=== PATIENT | male | born 1945 | race Caucasian/White ===

== ENCOUNTER 2020-06-23 14:40 | Emergency (ER) | payer MEDICARE, OTHER, SELFPAY ==
[2020-06-23 14:41] VITALS: BP 145/73; PULSE 109; RESP 16; TEMP 36.6; O2SAT 98; BMI 27.6
--- NOTE | 2020-06-23 15:19 | XR_ITS ---
PROCEDURE: XR HAND LT 2V CLINICAL INDICATION: laceration Injury with pain COMPARISON: No exams were available for comparison FINDINGS: There is a comminuted fracture involves the distal aspect of the proximal phalanx of the thumb. Fracture has both a transverse component which is nondisplaced and longitudinal component which extends into the articular surface of the interphalangeal joint also nondisplaced. Nonspecific calcification present both along the anterior and posterior aspect of the wrist consistent with chondrocalcinosis. Minimal periarticular calcification noted at the 1st metacarpophalangeal joint Other findings:None. IMPRESSION: Nondisplaced comminuted fracture distal aspect proximal phalanx of the thumb with intra-articular involvement Dictated by: Jesús Reyna MD 06/23/2020 16:41 Jesús Reyna MD in [place] 06/23/2020 16:41
--- NOTE | 2020-06-23 15:33 | HMH.EDWNDL ---
ED Disposition Clinical Impression: Open fracture of left thumb Qualifiers: Encounter type: initial encounter Phalanx: distal Fracture alignment: nondisplaced Qualified Code(s): S62.525B - Nondisplaced fracture of distal phalanx of left thumb, initial encounter for open fracture Disposition: Home, Self-Care Condition on Discharge: Good Instructions: DI for Laceration Repair Prescriptions: Hydrocod/Acet 5/325 mg [Tiro 5/325mg tablet] 1 tab PO Q6HP PRN #10 tab PRN Reason: Moderate Pain Prescription Printed Amoxicillin/Potassium Clav [Augmentin 875-125 Tablet] 1 tab PO Q12H 10 Days #20 tab Prescription Printed Referrals: PCP,No [Primary Care Provider] - Polo Dupree MD [Referring] - 3 days (Report to clinic on 06/27/2020 at 0800) - Critical Care Critical Care Time: No Attestation: On 06/23/20, the high probability of a clinically significant, sudden or life threatening deterioration of the following system(s) required my full and direct attention, intervention and personal management. The time I documented below is in addition to time spent performing reported procedures but includes the following listed in this critical care notation. Medical Decision Making - Medical Records Medical records reviewed: Yes: I reviewed the patient's medical records. - Sg Inquiry Pt receiving controlled substance: No Vital Signs: 06/23/20 14:41 Temperature 98 F Temperature Source Oral Pulse Rate [Left Radial] 109 H Respiratory Rate 16 Blood Pressure [Right Arm] 145/73 H Blood Pressure Mean [Right Arm] 97 Blood Pressure Position [Right Arm] Sitting 02 Sat by Pulse Oximetry 98 Oxygen Delivery Method Room Air Orders (Tests/Meds): ED MEDICATIONS Generic Name Dose Route Start Last Admin Trade Name Freq PRN Reason Stop Dose Admin Cefazolin Sodium 1 gm 06/23/20 17:30 Cefazolin 1gm Vial IM 06/23/20 17:31 ONCE ONE Protocol Discontinued Medications Generic Name Dose Route Start Last Admin Trade Name Freq PRN Reason Stop Dose Admin Acetaminophen 1,000 mg 06/23/20 15:20 06/23/20 16:29 Acetaminophen 500mg Tab PO 06/23/20 15:21 1,000 mg ONCE ONE Administration - Radiology Data #1 Image(s): Hand Image Reviewed: Yes I reviewed the patient's radiology results, Yes I reviewed the patient's radiology image Nondisplaced comminuted fracture distal aspect proximal phalanx of the thumb with intra-articular involvement - Reevaluation(s) Time: 17:31 Reevaluation #1: Patient does have evidence of fracture with intra-articular involvement. This is an open fracture. I did speak to orthopedic surgery and hand surgery in [place]. Mora. He has arranged for emergency follow-up. Patient was thoroughly irrigated. Cleaned and sutured. Patient be placed in thumb spica. Tolerated procedure well. I did instruct the patient that he needs to maintain his emergent follow-up or he is to return the emergency department for evaluation. Given strict return precautions. Verbalized understanding. Medical Decision Narrative: 75-year-old male presenting with laceration to the left thumb. Good range of motion. X-ray obtained. Patient will require suture repair. Wound/Laceration HPI - General Chief Complaint: Wound/Laceration Stated Complaint: Cut on right thumb Time Seen by Provider: 06/23/20 15:34 Mode of Arrival: Ambulatory Limitations: No Limitations Description of Symptoms (Recalled from ER Triage Doc. 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 - History of Present Illness HPI narrative: This is a 75-year-old male presenting to the emergency department with an injury to his left thumb. The patient was sliding in his crossbow when he accidentally released it. One of the edges of the arrow caught the back of his thumb. He has a laceration of the dorsal aspect of his left thumb. He did apply direct pressure dressing whic
[2020-06-23 18:03] VITALS: BP 142/74; PULSE 89; RESP 16; TEMP 36.6; O2SAT 98
== END 2020-06-23 18:04 | disposition home or self-care (01) ==
PROVIDERS: Emergency Provider Emergency Medicine
DX: S62.525B Nondisplaced fracture of distal phalanx of left thumb, initial encounter for open fracture (principal); S61.012A Laceration without foreign body of left thumb without damage to nail, initial encounter; W45.8XXA Other foreign body or object entering through skin, initial encounter; Y92.018 Other place in single-family (private) house as the place of occurrence of the external cause
CPT/HCPCS: 12002; 29125; 73120; 96372; 99283

== ENCOUNTER 2025-05-23 00:06 | Emergency (ER) | payer MEDICARE, OTHER, SELFPAY ==
[2025-05-23 00:20] VITALS: BP 134/85; PULSE 92; RESP 16; TEMP 36.6; O2SAT 95; BMI 26.3
--- OUTSIDE RECORDS SUMMARY | 2025-05-23 00:20 | XMS_ITS | Clinical Summary ---
Author Organization [facility] Care Address [address] [place] [id number] Care Team Providers Care Environmental Remediation Engineer Name Role Phone Pcp, None Per Patient Primary Care Provider Unav ailable Source Comments In the event that these patient records contain information protected by 42 CFRpart 2 (i.e., would identify the patient as a substance abuser and was obtainedby a federally assisted substance abuse program to diagnose, refer fortreatment or treat the patient for substance abuse), please be advised of thefollowing: This information has been disclosed to you from records protected by Federalconfidentiality rules (42 CFR part 2). The Federal rules prohibit you frommaking any further disclosure of this information unless further disclosure isexpressly permitted by the written consent of the person to whom it pertains oras otherwise permitted by 42 CFR part 2. A general authorization for therelea se of medical or other information is NOT sufficient for this purpose.The Federal rules restrict any use of the information to criminally investigateor prosecute any alcohol or drug abuse patient. expressly permitted by the written consent of the person to whom it pertains or as otherwise permitted by 42 CFR part 2. A general authorization for the release of medical or other information is NOT sufficient for this purpose. The Federal rules restrict any use of the information to criminally investigate or prosecute any alcohol or drug abuse patient.[facility] Allergies No known active allergies Medications metFORMIN (GLUCOPHAGE) 500 MG tablet 04/18/2012 Active pravastatin (PRAVACHOL) 40 MG tablet 04/18/2012 Active aspirin 81 MG chewable tablet 04/18/2012 Act antonio azithromycin (ZITHROMAX Z-SUSIE) 250 MG tablet Take 2 pills the first day then 1 pill daily for a total of 5 days 6 tablet 0 09/23/2016 Active Active Problems No known active problems Social History Tobacco Use Types Packs/Day Years Used Date Smoking Tobacco: Some Days Sex and Gender Information Value Date Recorded Sex Assigned at Not on file Legal Sex Male 2:19 AM EST Gender Identity Not on file Sexual Orientation Not on file Last Filed Vital Signs Vital Sign Reading Time Taken Comments Blood Pressure 135/85 09/23/2016 12:00 PM EST Pulse 72 09/23/2016 12:00 PM EST Temperature 36.8 C (98.2 F) 09/23/2016 12:00 PM EST Respiratory Rate 16 09/23/2016 12:00 PM EST Oxygen Saturation 95% 09/23/2016 12:00 PM EST Inhaled Oxygen Concentration - - Weight 83.6 kg (184 lb 3.2 oz) 09/23/2016 12:00 PM EST Height 165.1 cm (5' 5 ) 09/23/2016 12:00 PM EST Body Mass Index 30.65 09/23/2016 12:00 PM EST Plan of Treatment Health Maintenance Due Date Last Done Comments Hepatitis C Screen 1963 COVID-19 Vaccine ( season) 2025 Influenza Vaccine (#1) 2025 Insurance MEDICARE PART A AND PART B [facility] Care Teams Environmental Remediation Engineer Relationship Specialty Start Date End Date Pcp, None Per Patient [address] [place] [address] PCP - General 09/23/16
--- OUTSIDE RECORDS SUMMARY | 2025-05-23 00:20 | XMS_ITS | Encounter Summary ---
Author Organization [facility] Address [address] [place] [address] Care Team Providers Care Steel Pickler Name Role Phone Dk GRIMES MD, Alexis Duncan Primary Care Provider [phone] Syd Puga Primary Care Provider + [phone] Encounter Details Date Type Department Care Team (Late st Contact Info) Description 03/30/2019 OnBase Documentation On File [address] [place] [id number] Social History Tobacco Use Types Packs/Day Years Used Date Smoking Tobacco: Never Assessed Sex and Gender Information Value Date Recorded Sex Assigned at Not on file Legal Sex Male 11:24 AM EST Gender Identity Not on file Sexual Orientation Not on file documented as of this encounter Plan of Treatment Not on file documented as of this encounter Visit Diagnoses Not on filedocumented in this encounter Additional Health Concerns Infection Onset Date Last Indicated Resolved Time Suspected COVID-19 03/24/2021 03/24/2021 12:41 AM EDT documented as of this encounter Care Teams Steel Pickler Relationship Specialty Start Date End Date Alexis Root III, MD [address] [facility] [place], [place] [id number] PCP - General Family Medicine 03/31/19 03/01/24 Syd Puga [address] [place] [address] PCP - General 03/02/24 documented as of this encounter
--- OUTSIDE RECORDS SUMMARY | 2025-05-23 00:20 | XMS_ITS | Encounter Summary ---
Author Organization [facility] Address [address] [place] [address] Care Team Providers Care Custom Wood Stair Builder Name Role Phone Dk GRIMES MD, Alexis Duncan Primary Care Provider [phone] Syd Puga Primary Care Provider + [phone] Encounter Details Date Type Department Care Team (Late st Contact Info) Description 06/06/2020 OnBase Documentation On File [address] [place] [address] Social History Tobacco Use Types Packs/Day Years Used Date Smoking Tobacco: Some Days Cigars Smokeless Tobacco: Never Alcohol Use Standard Drinks/Week Comments Yes 1 (1 standard drink = 0.6 oz pur e alcohol) Few beers per week Sex and Gender Information Value Date Recorded [...] documented as of this encounter Care Teams Custom Wood Stair Builder Relationship Specialty Start Date End Date Alexis Root III, MD [address] [facility] [place] [address] PCP - General Family Medicine 03/31/19 03/01/24 Syd Puga [address] [place] [address] PCP - General 03/02/24 documented as of this encounter
--- OUTSIDE RECORDS SUMMARY | 2025-05-23 00:20 | XMS_ITS | Clinical Summary ---
Author Organization [facility] Address [address] [place] [address] Care Team Providers Care Water Meter Mechanic Name Role Phone Unavailable Primary Care Provider Unavailabl e Allergies No known active allergies Medications metformin (GLUCOPHAGE) 500 MG tablet Take 500 mg by mouth daily. Active pravastatin (PRAVACHOL) 10 MG tablet Take by mouth daily. Active aspirin 81 MG tablet Take 81 mg by mouth daily. Active naproxen (NAPROSYN) 500 MG tablet Take 1 tablet (500 mg total) by mouth 2 (two) times a day with meals. 20 tablet 06/20/2016 Active Active Problems No known active problems Social History Tobacco Use Types Packs/Day Years Used Date Smoking Tobacco: Former Alcohol Use Standard Drinks/Week Comments Yes 0 (1 standard drink = 0.6 oz pur e alcohol) Sex and Gender Information Value Date Recorded Sex Assigned at Not on file Legal Sex Male 11:12 AM EDT Gender Identity Not on file Sexual Orientation Not on file Last Filed Vital Signs Vital Sign Reading Time Taken Comments Blood Pressure 129/81 06/20/2016 12:45 PM EDT Pulse 69 06/20/2016 12:45 PM EDT Temperature 36.9 C (98.5 F) 06/20/2016 11:24 AM EDT Respiratory Rate 18 06/20/2016 12:45 PM EDT Oxygen Saturation 98% 06/20/2016 12:45 PM EDT Inhaled Oxygen Concentration - - Weight 78.5 kg (173 lb) 06/20/2016 11:24 AM EDT Height 172.7 cm (5' 8 ) 06/20/2016 11:24 AM EDT Body Mass Index 26.3 06/20/2016 11:24 AM EDT Plan of Treatment Health Maintenance Due Date Last Done Comments Hepatitis C antibody 1945 PSA 1945 Zoster vaccines (1 of 2) 1997 Pneumococcal vaccines 50+ yr s (2 of 2 - PCV) 01/23/2014 01/23/2013 RSV vaccines ( or >/ = 60 yo) (1 - 1-dose 75+ series) 2022 DTaP/Tdap/Td vaccines (2 - T d or Tdap) 01/18/2025 01/18/2015 Influenza vaccines (#1) 2025 HPV vaccines Aged Out No longer eligi ble based on patient's age to complete this topic Hepatitis A vaccines Aged Out No long er eligible based on patient's age to complete this topic Hepatitis B vaccines Aged Out No long er eligible based on patient's age to complete this topic Hib vaccines Aged Out No longer eligi ble based on patient's age to complete this topic Meningococcal ACWY vaccines Aged Out No longer eligible based on patient's age to complete this topic Polio vaccines Aged Out No longer niharika gible based on patient's age to complete this topic [facility] A AND B
--- OUTSIDE RECORDS SUMMARY | 2025-05-23 00:20 | XMS_ITS | Encounter Summary ---
Author Organization [facility] Address [address] [place] [address] Care Team Providers Care Cake Wrapper Name Role Phone Dk GRIMES MD, Alexis Duncan Primary Care Provider [phone] Syd Puga Primary Care Provider + [phone] Encounter Details Date Type Department Care Team (Late st Contact Info) Description 11/15/2021 OnBase Documentation On File [address] [place] [address] Social History Tobacco Use Types [...] on file Sexual Orientation Not on file COVID-19 Exposure Response Date Recorded In the last 10 days, have yo u been in contact with someone who was confirmed or suspected to have Coronavirus/COVID-19? No / Unsure 11/15/2021 11:45 AM EDT documented as of this encounter Plan of Treatment Not on file documented as of this encounter Visit Diagnoses Not on filedocumented in this encounter Care Teams Cake Wrapper Relationship Specialty Start Date End Date Alexis Root III, MD [address] [facility] [place] [address] PCP - General Family Medicine 03/31/19 03/01/24 Syd Puga [address] [place] [address] PCP - General 03/02/24 documented as of this encounter
--- OUTSIDE RECORDS SUMMARY | 2025-05-23 00:20 | XMS_ITS | Encounter Summary ---
Author Organization [facility] Address [address] [place] [address] Care Team Providers Care Campaign Associate Name Role Phone Mirza Vinson MD Primary Care Provider + Carlin Tavera Primary Care Provider Melissa Root III, MD, Alexis W Primary Care Provider +[phone] Syd Puga Primary Care Provider + [phone] Encounter Details Date Type Department Care Team (Late st Contact Info) Description 09/28/2010 Historical Unknown Encounter On File [address] [place] [address] Provider, [place] [address] Social History Tobacco Use Types Packs/Day Years [...] documented as of this encounter Care Teams Campaign Associate Relationship Specialty Start Date End Date Mirza Vinson MD [address] [place] [address] PCP - General 01/17/12 02/06/16 Surescripts, Testone PCP - General 02/07/16 02/08/16 Alexis Root III, MD [address] [facility] [place] [address] PCP - General Family Medicine 03/31/19 03/01/24 Syd Puga [address] [place] [address] PCP - General 03/02/24 documented as of this encounter
--- OUTSIDE RECORDS SUMMARY | 2025-05-23 00:20 | XMS_ITS | Encounter Summary ---
Author Organization [facility] Address [address] [place] [address] Care Team Providers Care Quality Control Microbiology Supervisor Name Role Phone Mirza Vinson MD Primary Care Provider + Carlin Tavera Primary Care Provider Melissa Root III, MD, Alexis W Primary Care Provider +[phone] Syd Puga Primary Care Provider + [phone] Encounter Details Date Type Department Care Team (Late st Contact Info) Description 10/10/2010 Historical Unknown Encounter On File [address] [place] [address] Provider, [place] [address] Social History Tobacco Use Types Packs/Day Years [...] documented as of this encounter Care Teams Quality Control Microbiology Supervisor Relationship Specialty Start Date End Date Mirza Vinson MD [address] [place] [address] PCP - General 01/17/12 02/06/16 Surescripts, Testone PCP - General 02/07/16 02/08/16 Alexis Root III, MD [address] [facility] [place] [address] PCP - General Family Medicine 03/31/19 03/01/24 Syd Puga [address] [place] [address] PCP - General 03/02/24 documented as of this encounter
--- OUTSIDE RECORDS SUMMARY | 2025-05-23 00:20 | XMS_ITS | Encounter Summary ---
Author Organization [facility] Address [address] [place] [address] Care Team Providers Care Coin Machine Assembler Name Role Phone Mirza Vinson MD Primary Care Provider + SurescriCarlin reynolds Primary Care Provider Melissa Root III, MD, Alexis W Primary Care Provider +[phone] Syd Puga Primary Care Provider + [phone] Encounter Details Date Type Department Care Team (Late st Contact Info) Description 09/28/2010 OnBase Documentation On File [address] [place] [address] Social History Tobacco Use Types Packs/Day Years Used Date Smoking Tobacco: Never Assessed Sex and Gender Information Value Date Recorded Sex Assigned at Not on file Legal Sex Male 11:24 AM EST Gender Identity Not on file Sexual Orientation Not on file documented as of this encounter Miscellaneous Notes * Questionnaire - PROVIDER, ON-FILE - 09/28/2010 12:00 AM EST documented in this encounter Plan of Treatment Not on file documented as of this encounter Visit Diagnoses Not on filedocumented in this encounter Additional Health Concerns Infection Onset Date Last Indicated Resolved Time Suspected COVID-19 03/24/2021 03/24/2021 12:41 AM EDT documented as of this encounter Care Teams Coin Machine Assembler Relationship Specialty Start Date End Date Mirza Vinson MD [address] [place] [address] PCP - General 01/17/12 02/06/16 Carlin Tavera PCP - General 02/07/16 02/08/16 Alexis Root III, MD [address] [facility] [place] [address] PCP - General Family Medicine 03/31/19 03/01/24 Syd Puga [address] [place] [address] PCP - General 03/02/24 documented as of this encounter
--- OUTSIDE RECORDS SUMMARY | 2025-05-23 00:20 | XMS_ITS | Encounter Summary ---
Author Organization [facility] Address [address] [place] [address] Care Team Providers Care Sourcing Specialist Name Role Phone Mirza Vinson MD Primary Care Provider + SurescriCarlin reynolds Primary Care Provider Melissa Root III, MD, Alexis W Primary Care Provider +[phone] Syd Puga Primary Care Provider + [phone] Encounter Details Date Type Department Care Team (Late st Contact Info) Description 10/10/2010 OnBase Documentation On File [address] [place] [address] Social History Tobacco Use Types Packs/Day Years Used Date Smoking Tobacco: Never Assessed Sex and Gender Information Value Date Recorded Sex Assigned at Not on file Legal Sex Male 11:24 AM EST Gender Identity Not on file Sexual Orientation Not on file documented as of this encounter Miscellaneous Notes * Condition of Admission - PROVIDER, ON-FILE - 10/10/2010 12:00 AM EST documented in this encounter Plan of Treatment Not on file documented as of this encounter Visit Diagnoses Not on filedocumented in this encounter Additional Health Concerns Infection Onset Date Last Indicated Resolved Time Suspected COVID-19 03/24/2021 03/24/2021 12:41 AM EDT documented as of this encounter Care Teams Sourcing Specialist Relationship Specialty Start Date End Date Mirza Vinson MD [address] [place] [address] PCP - General 01/17/12 02/06/16 Mayterigail, Testone PCP - General 02/07/16 02/08/16 Alexis Root III, MD [address] [facility] [place] [address] PCP - General Family Medicine 03/31/19 03/01/24 Syd Puga [address] [place], [place] [id number] PCP - General 03/02/24 documented as of this encounter
--- OUTSIDE RECORDS SUMMARY | 2025-05-23 00:20 | XMS_ITS | Clinical Summary ---
Author Organization [facility] Address [address] [place] [address] Care Team Providers Care Featheredge Machine Operator Name Role Phone Syd Puga Primary Care Provider + [phone] Allergies No known active allergies Medications aspirin 81 mg tablet Take 81 mg by mouth once daily 1 Active *folic acid/niacinamid e/zinc oral takes 2- 500mg pills daily 1 Active aspirin-calcium carbonate 81 mg-300 mg calcium(777 mg) Tab Take by mouth Active pravastatin (PRAVACHOL) 10 MG tablet Take 10 mg by mouth at bedtime 7 Active metFORMIN (GLUCOPHAGE) 500 MG tablet Take 500 mg by mouth daily with breakfast 2 Active ibuprofen (MOTRIN) 200 MG tablet Take 400 mg by mouth every 6 (six) hours as needed for Pain Active naproxen (NAPROSYN) 500 MG tablet Take 500 mg by mouth once as needed Active Active Problems Problem Noted Date Diagnosed Date Cigar smoker 04/01/2023 Asbestosis (CMS/HHS-HCC) 04/01/2023 Overview (04/01/2023): Oct 24, 2022 Entered By: SYD ANSARI Comment: Pt in survail program through former employer, screened every year Dyslipidemia 04/01/2023 ED (erectile dysfunction) 04/01/2023 Hyperlipidemia 04/01/2023 Primary osteoarthritis of left knee 10/25/2021 Asbestos exposure 05/31/2014 Diabetes mellitus, type 2 (CMS/HHS-HCC) 11/13/20 13 Immunizations Immunization Administration Dates Next Due COVID-19 Pfizer Monovalent Vaccine 06/18/2021,,10/01/2020 Family History Medical History Relation Comments Colon cancer Neg Hx Colon polyps Neg Hx Social History Tobacco Use Types Packs/Day Years Used Date Smoking Tobacco: Some Days Cigars Passive Smoke Exposure: Past Smokeless Tobacco: Never Tobacco Cessation:Ready to Q uit: Not Asked; Counseling Given: Not Answered Alcohol Use Standard Drinks/Week Comments Yes 3 (1 standard drink = 0.6 oz pur e alcohol) Few beers per week Interpersonal Safety Answer Date Record ed Is Anyone Hurting/Threatenin g You or Making You Feel Afraid? Not asked, patient not alone 03/02/2024 Is Anyone Hurting/Threatenin g You or Making You Feel Afraid? Not asked, patient not alone 03/02/2024 Sex and Gender Information Value Date Recorded Sex Assigned at Not on file Legal Sex Male 11:24 AM EST Gender Identity Not on file Sexual Orientation Not on file Last Filed Vital Signs Vital Sign Reading Time Taken Comments Blood Pressure 126/71 03/02/2024 10:15 AM EDT Pulse 76 02/09/2024 10:14 AM EDT Temperature 36.8 C (98.2 F) 03/02/2024 10:00 AM EDT Respiratory Rate 18 03/02/2024 10:15 AM EDT Oxygen Saturation 96% 03/02/2024 10:15 AM EDT Inhaled Oxygen Concentration - - Weight 79.2 kg (174 lb 9.7 oz) 03/02/2024 7:12 A M EDT Height 172.7 cm (5' 8 ) 03/02/2024 7:12 AM EDT Body Mass Index 26.55 03/02/2024 7:12 AM EDT Plan of Treatment Health Maintenance Due Date Last Done Comments CT Colonography 1947 Diabetes Education 1947 Fecal Occult Blood Testing 1947 Lipid Panel 1947 Sigmoidoscopy 1947 Cologuard 1947 Medicare Initial AWV G0438 1947 Annual Urine Albumin Creatinine Ratio 1957 Monofilament Foot Exam 1957 Depression Screening 1958 Adult Tetanus (Td And Tdap) 1965 Pneumococcal Vaccine: 50+ (1 of 2 - PCV) 1966 Shingrix (1 of 2) 1997 Hemoglobin A1C 03/28/2011 09/28/2010 Diabetes Eye Assessment Exam 04/11/2021 04/11/2020 RSV Immunization or 60+ (1 - 1-dose 75+ series) 2022 Influenza Vaccine (#1) 2025 , 05/19/2023, 05/02/2021, Additional history exists Colonoscopy 03/02/2027 03/02/2024, 10/2023, 07/26/2020, Additional history exists Colorectal Cancer Screening 03/02/2027 HPV Vaccines Aged Out No longer eligi ble based on patient's age to complete this topic Hepatitis A Vaccines Aged Out No long er eligible based on patient's age to complete this topic Hib Vaccines Aged Out No longer eligi ble based on patient's age to complete this topic Meningococcal ACWY Vaccine Aged Out N o longer eligible based on patient's age to complete this topic Meningococcal B Vaccine Aged Out No l onger eligible based on patient's age to complete this topic Procedures Procedure Name Priority Date/Time Associated Diagnosis Comments COLONOSCOPY 03/02/2024 9:15 AM EDT HEMOGLOBIN A1C Routine 09/28/2010 3:14 PM EST from Last 3 Months or Most Recently Relevant to Health Maintenance Results * Colonoscopy (03/02/2024 9:15 AM EDT) Alexis Root III, MD GI PROCEDURE ORDERABLES F inal Result * Hemoglobin A1C (09/28/2010 3:14 PM EST) Hemoglobin A1C 5.8 4.3 - 6.0 % [facility] Average Blood Glucose (Calc) 118 mg/dL [facility] Comment: INTERPRETIVE DATA AVERAGE BLOOD GLUCOSE ASSOCIATED WITH THIS PERCENT GLYCATED HEMOGLOBIN (BASED ON DCCT) 09/28/2010 3:14 PM EST us Mirza Vinson MD LAB BLOOD ORDERABLES Fin al Result [facility] [id number] [place] [address] from Last 3 Months or Most Recently Relevant to Health Maintenance Care Teams Featheredge Machine Operator Relationship Specialty Start Date End Date Syd Puga 1952 [place] [address] PCP - General 03/02/24
--- OUTSIDE RECORDS SUMMARY | 2025-05-23 00:21 | XMS_ITS | Encounter Summary ---
Author Organization [facility] Address [address] [place] [address] Care Team Providers Care Drying Oven Tender Name Role Phone Mirza Vinson MD Primary Care Provider + Surescrigail Testone Primary Care Provider Melissa Root III, MD, Alexis W Primary Care Provider [phone] Syd Puga Primary Care Provider + [phone] Encounter Details Date Type Department Care Team (Late st Contact Info) Description 02/20/2013 Documentation On File [address] [place] [address] Social History Tobacco Use Types Packs/Day Years Used Date Smoking Tobacco: Never Assessed Sex and Gender Information Value Date Recorded Sex Assigned at Not on file Legal Sex Male 11:24 AM EST Gender Identity Not on file Sexual Orientation Not on file documented as of this encounter Miscellaneous Notes * Miscellaneous - PROVIDER, ON-FILE - 02/20/2013 12:00 AM EDT Patient: [facility]: [id number] Ry Disease Management Observations 07/02/2010 Influenza vaccine Done entered 09/28/2010 by FRANSISCO CARLIN 09/28/2010 Tobacco Smoking Status Current smoker. entered 09/28/2010 by FRANSISCO CARLIN documented in this encounter Plan of Treatment Not on file documented as of this encounter Visit Diagnoses Not on filedocumented in this encounter Additional Health Concerns Infection Onset Date Last Indicated Resolved Time Suspected COVID-19 03/24/2021 03/24/2021 12:41 AM EDT documented as of this encounter Care Teams Drying Oven Tender Relationship Specialty Start Date End Date Mirza Vinson MD [address] [place] [address] PCP - General 01/17/12 02/06/16 Surescrigail, Testone PCP - General 02/07/16 02/08/16 Alexis Root III, MD [address] [facility] [place], [place] [id number] PCP - General Family Medicine 03/31/19 03/01/24 Syd Puga [address] [place] [address] PCP - General 03/02/24 documented as of this encounter
--- OUTSIDE RECORDS SUMMARY | 2025-05-23 00:21 | XMS_ITS | Encounter Summary ---
Author Organization [facility] Address [address] [place] [address] Care Team Providers Care Supervisor Laundry Name Role Phone Dk GRIMES MD, Alexis Duncan Primary Care Provider [phone] Syd Puga Primary Care Provider + [phone] Encounter Details Date Type Department Care Team (Late st Contact Info) Description 03/12/2019 OnBase Documentation On File [address] [place] [id number] Social History Tobacco Use Types Packs/Day Years [...] documented as of this encounter Care Teams Supervisor Laundry Relationship Specialty Start Date End Date Alexis Root III, MD [address] [facility] [place], [place] [id number] PCP - General Family Medicine 03/31/19 03/01/24 Syd Puga [address] [place] [address] PCP - General 03/02/24 documented as of this encounter
[2025-05-23 01:01] VITALS: BP 125/73; PULSE 86; O2SAT 96
[2025-05-23 01:34] VITALS: BP 125/73; PULSE 80; RESP 16; TEMP 36.6; O2SAT 98
--- NOTE | 2025-05-23 02:51 | HMH.EDGENADL ---
Discharge Plan Disposition Patient Disposition: Home, Self-Care Condition: Good Prescriptions Prescriptions: No Action hydrocodone-acetaminophen 1 TAB tablet 1 tab PO Q6HP PRN (Reason: Moderate Pain) Qty: 10 0RF amoxicillin-pot clavulanate 1 EACH tablet 1 tab PO Q12H 10 Days Qty: 20 0RF Referrals Follow up/Referrals: Provider,Referral, [Primary Care Provider, Medical] - See instructions Activity Restrictions/Add. Instructions Additional Instructions/Restrictions: You were evaluated in the ER and are believed to be appropriate for discharge at this time. As discussed, take an antihistamine like Claritin or Zyrtec if needed for itching. You can also use a topical anti-itch cream, but I do recommend Preparation H specifically. Apply 2-3 times a day to the itchy areas. Make sure you wash all of your close and sheets to ensure no spread of the oil which could cause more rash. Follow-up with your primary care doctor for reevaluation in 2 to 3 days. Return to the ER with any new, worsening, or otherwise concerning symptoms as discussed. Clinical Impressions Clinical Impression: Dermatitis due to plants, including poison princess, sumac, and oak Instructions Patient Instructions: DI for Skin Abscess Print Language Print Language: Georgian Discharge ED Provider: Reg Acuna General Adult HPI General Chief complaint: Skin/Abscess/Foreign Body Stated complaint: skin rash Time Seen by Provider: 05/23/25 01:20 Mode of Arrival: Ambulatory Source of Information: Patient Description of Symptoms (Recalled from ER Triage Doc. by RN): Patient has an itchy rash for 1 day- on legs and arms; has not taken any medications for it History of Present Illness HPI narrative: 80-year-old male with type 2 diabetes presents to the ER complaining of itchy rash on his legs and arms. 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 He initially had just a few spots on his left ankle and on his left arm but he also now has a couple on his right ankle, right arm, and right side. He states he has not taken any medication for it but has tried topical anti-itch cream without improvement. He states he does shower after working. He states he has not previously reacted to poison princess or other plants, this is the first time having a rash like this. He has no difficulty breathing or swallowing, no swelling of the lips or tongue, no nausea or vomiting, no systemic symptoms, no other complaints or concerns. He has not had any fevers or chills, no chest pain or difficulty breathing, no abdominal complaints, no recent illness. He reports he is not specifically concerned about the rash but just wants relief from itching. Related Data Previous Rx's ?Medication ?Instructions ?Recorded amoxicillin 875 mg-potassium 1 tab PO Q12H 10 days #20 tabs 06/23/20 clavulanate 125 mg tablet hydrocodone 5 mg-acetaminophen 325 1 tab PO Q6HP PRN Moderate Pain 06/23/20 mg tablet #10 tabs Allergies Allergy/AdvReac Type Severity Reaction Status Date / Time No Known Allergies Allergy Verified 06/23/20 17:34 [facility] Disclaimer: The information contained in this section may have been updated after the patient was seen, as this information can be updated by other users. Social History Smoking Status: Current every day smoker alcohol intake: never current occupational status: other Travel in the last 8 weeks?: None Other Medical History Have you received the Flu Vaccine for this season: Yes Have you received the Pneumonia Vaccine: Yes ROS Obtained: Yes Systems reviewed as appropriate & no additional complaints except as documented Per HPI Physical Exam General General appearance: alert and in no apparent distress Head Head exam: atraumatic and normocephalic Eye Eye exam: Present PERRL and EOMI ENT ENT exam: Present mucous membranes moist Neck Neck exam: Present normal inspection and full ROM Chest Chest inspection: Present symmetric chest wall rise Respiratory Respiratory exam: Present normal lung sounds bilaterally; Absent respiratory distress, wheezes or stridor Cardiovascular Cardiovascular exam: Present regular rate and normal rhythm Abdominal Exam Abdominal exam: Present soft; Absent distention or tenderness Extremities Exam Extremities exam: Present full ROM Neurological Exam Neurological exam: Present alert and oriented X3; Absent motor sensory deficit Psychiatric Psychiatric exam: Present normal affect and normal mood Skin Skin exam: Present warm, dry, rash (Few small papules with erythematous base and small vesicle on the anterior left and right ankle, few (4-5) similar-appearing small papules with erythematous base and small vesicle on the right lateral abdomen, few similar-appearing on right forearm, 1 similar-appearing lesion on the left forearm) and other (Rash is nontender, not sloughing, negative Nikolsky's, no bullae, no associated induration or fluctuance, no petechiae) Medical Decision Making Medical Records Medical records reviewed: Yes I reviewed the patient's medical records. Screening: Per USPSTF and CDC recommendations, given the prevalence of disease in our region, it is our hospital?s policy to screen for HIV and viral Hepatitis for all patients aged 18 and over and those with ongoing risk factors. Sg Inquiry Pt receiving controlled substance: No Vital Signs: 05/23/25 00:20 05/23/25 01:01 05/23/25 01:34 Temperature 97.9 F 97.9 F Temperature Source Oral Oral Pulse Rate 86 80 Pulse Rate [Right Radial] 92 H Respiratory Rate 16 16 Blood Pressure 125/73 125/73 Blood Pressure [Right Arm] 134/85 Blood Pressure Mean [Right Arm] 101 Blood Pressure Source Automatic Cuff Blood Pressure Source [Right Arm] Automatic Cuff Blood Pressure Position Supine Blood Pressure Position [Right Arm] Sitting 02 Sat by Pulse Oximetry 95 96 Oxygen Delivery Method Room Air Room Air Medical Decision Narrative: In summary, this 80-year-old male with comorbidities described in the HPI presents to the emergency department today with concerns of itchy rash on the extremities. On initial evaluation patient is hemodynamically stable, afebrile, airway patent, no angioedema, no wheezes, benign abdomen, no peripheral edema, patient has rash as described in the physical exam which consists of few small erythematous based papules a few of which are developing small vesicles, no bullae, no sloughing, negative Nikolsky's, nontender but the rash is pruritic, no petechiae, no purpura, distribution includes the ankles, forearms, and a few on the right side. Differential diagnosis includes but is not limited to contact dermatitis, allergic reaction, I had considered with the erythematous base vesicles the possibility of varicella eruption however the distribution is not consistent with this and it is not painful. Given patient's history it is most likely that this represents a contact dermatitis from a plant such as poison princess, poison oak, poison sumac. Patient admits it is possible he was exposed to these given his recent work. His exam is otherwise benign and well-appearing with no evidence of systemic symptoms or multiorgan involvement. No angioedema or anaphylaxis present. I discussed management recommendations with the patient including oral antihistamine such as Claritin or Zyrtec, topical creams for itch relief, we did discuss steroids but given his history of type 2 diabetes and only a few small lesions at this point I believe the risks of steroid treatment outweigh the benefits. Patient did not receive any medications in the ER. I recommended topical creams to him including Preparation H which can significantly relieve the itching. I did certified alcohol and drug counselor and educate him on thorough washing of all close lower linens that may have come in contact with any oil from these plants. Patient was given instructions on symptomatic management, follow up instructions, and return precautions for the emergency department. Patient indicated understanding and was discharged in stable condition. Critical Care Critical Care Time Critical Care Time: No
== END 2025-05-23 01:38 | disposition home or self-care (01) ==
PROVIDERS: Emergency Provider Emergency Medicine
DX: L23.7 Allergic contact dermatitis due to plants, except food (principal); W60.XXXA Contact with nonvenomous plant thorns and spines and sharp leaves, initial encounter
CPT/HCPCS: 99283